=== PATIENT | male | born 1980 | race Caucasian/White ===

== ENCOUNTER 2016-09-15 13:26 | Emergency (ER) | payer OTHER ==
[2016-09-15 13:54] VITALS: BMI 23.6
[2016-09-15 13:58] VITALS: BP 116/66; RESP 18; TEMP 98.3; O2SAT 99
--- NOTE | 2016-09-15 16:17 | C.PDOC ---
History Of Present Illness 35 y/o male presents to the ED with complaints of right arm pain which onset while playing cricket yesterday. Pt states he dove onto his right arm, continued to play after the incident. No change in sensation. Time Seen by Provider: 09/15/16 14:40 Chief Complaint (Nursing): Upper Extremity Problem/Injury History Per: Patient History/Exam Limitations: no limitations Onset/Duration Of Symptoms: Hrs Current Symptoms Are (Timing): Still Present Quality: "Pain" Severity: Moderate Recent travel outside of the [place]: No Past Medical History Reviewed: Historical Data, Nursing Documentation, Vital Signs Vital Signs: Last Vital Signs Temp 98.3 F 09/15/16 13:54 Pulse 72 09/15/16 16:25 Resp 18 09/15/16 16:25 BP 116/66 09/15/16 13:54 Pulse Ox 99 09/15/16 16:42 Family History: States: Unknown Family Hx - Social History Hx Tobacco Use: Yes Hx Alcohol Use: Yes (a couple of beer) Hx Substance Use: No - Immunization History Hx Tetanus Toxoid Vaccination: No Hx Influenza Vaccination: No Hx Pneumococcal Vaccination: No Review Of Systems Musculoskeletal: Positive for: Arm Pain (right) Neurological: Negative for: Weakness, Numbness Physical Exam - Physical Exam Appears: Non-toxic, No Acute Distress Skin: Warm, Dry, No Rash Head: Atraumatic, Normacephalic Eye(s): bilateral: Normal Inspection, EOMI Nose: Normal Oral Mucosa: Moist Chest: Symmetrical Respiratory: No Accessory Muscle Use Extremity: No Normal ROM (decreased ROM secondary to pain), Tenderness (right mid humerus and anterior shoulder), Capillary Refill (<2 seconds), No Deformity , No Swelling Extremity: Bilateral: Normal Color And Temperature, Normal ROM Pulses: Right Radial: Normal Neurological/Psych: Oriented x3, Normal Speech, Normal Motor (5/5), Normal Sensation ED Course And Treatment O2 Sat by Pulse Oximetry: 99 (room air) Pulse Ox Interpretation: Normal Progress Note: XR negative for fracture or dislocation of shoulder/humerus. Shoulder sling applied by helpdesk technician. Instructed follow up with ortho in 1-2 days, and to rest, ice and elevate the arm. Disposition - Disposition Referrals: Ellen Gayle MD [Staff Provider] - Disposition: HOME/ ROUTINE Disposition Time: 16:15 Condition: STABLE Additional Instructions: Rest and ice the area. Follow up with primary medical doctor in 1-3 days without fail for further evaluation. Take medications as prescribed. Return to the emergency department at any time if symptoms persist or worsen. Prescriptions: Naproxen [Naprosyn] 1 tab PO BID PRN #20 tab PRN Reason: Pain Instructions: Contusion in Adults (ED) - Clinical Impression Clinical Impression: Contusion of right arm - PA / CASE MANAGEMENT RN / Resident Statement MD/DO has reviewed & agrees with the documentation as recorded. - Scribe Statement The provider has reviewed the documentation as recorded by the Radhaibluis smith All medical record entries made by the Patti were at my direction and personally dictated by me. I have reviewed the chart and agree that the record accurately reflects my personal performance of the history, physical exam, medical decision making, and the department course for this patient. I have also personally directed, reviewed, and agree with the discharge instructions and disposition.
[2016-09-15 16:46] VITALS: PULSE 72
--- NOTE | 2016-09-15 16:46 | RAD ---
PROCEDURE: Radiographs of the Right Shoulder HISTORY: trauma COMPARISON: No prior. FINDINGS: BONES: Normal. No fracture. JOINTS: Normal. Glenohumeral and acromioclavicular joints preserved. No osteoarthritis. SOFT TISSUES: Normal. OTHER FINDINGS: None. IMPRESSION: Normal radiographs of the right shoulder.
--- NOTE | 2016-09-15 16:46 | RAD ---
PROCEDURE: Radiographs of the right humerus. HISTORY: trauma COMPARISON: None. FINDINGS: BONES: Normal. No fracture or focal lesion. SOFT TISSUES: Normal. OTHER FINDINGS: None. IMPRESSION: Normal radiographs of right humerus.
== END 2016-09-15 16:35 | disposition home or self-care (01) ==
LOC: C.ER 13:26
DX: S40.021A Contusion of right upper arm, initial encounter (principal); X58.XXXA Exposure to other specified factors, initial encounter; Y93.69 Activity, other involving other sports and athletics played as a team or group